=== PATIENT | female | born 1965 | race Caucasian/White ===

== ENCOUNTER → 2016-08-09 | Outpatient (CLI) | payer OTHER ==
--- NOTE | 2016-08-09 21:22 | MA ---
Digital Screening Mammogram Bilateral 08/09/2016 8:31 Indication: Screening Comparison: June 2015 and April 2014. Technique: Standard digital cephalocaudal and mediolateral oblique projections are obtained. This e xamination is processed by the [employer] computer-aided detection system. Findings: Standard views of both breasts demonstrate moderately dense fibroglandular tissue which can decrease the sensitivity to mammography, breast C (50-75%). Stable parenchymal pattern. A few benign -appearing calcifications are seen bilaterally. No suspicious interval change is seen in either breas t. Impression: Benign. BI-RADS 2. Recommendation: Screening mammogram in one year. [facility] will send a result letter to the patient. Negative mammography should not preclude additional workup of a clinically suspicious finding. The patient's information is entered into a reminder system with a target due date for her next mammo gram.
== END ==
LOC: FIMAGING 08:29
DX: Z12.31 Encounter for screening mammogram for malignant neoplasm of breast (principal)
CPT/HCPCS: G0202

== ENCOUNTER → 2017-09-15 | Outpatient (CLI) | payer OTHER ==
[~2017-09-15] MED LIST: IOPAMIDOL (ISOVUE 370) 100 ML BTL IV ONE
== END ==
LOC: FIMAGING 15:33
PROVIDERS: ATTEND Registered Nurse
DX: R05 Cough (principal); J45.990 Exercise induced bronchospasm
CPT/HCPCS: Q9967

== ENCOUNTER → 2017-10-01 | Outpatient (CLI) | payer OTHER | LOC: BIMAGING 10:36 | PROVIDERS: ATTEND Family Medicine | DX: Z12.31 Encounter for screening mammogram for malignant neoplasm of breast (principal) ==

== ENCOUNTER 2017-10-03 08:28 | Emergency (ER) | payer OTHER ==
--- NOTE | 2017-10-03 08:35 | EDPHY ---
H & P Time Seen by Provider: 10/03/17 08:35 HPI/ROS: CHIEF COMPLAINT: Chest pain and back pain HISTORY OF PRESENT ILLNESS: Patient had recent pneumonia, diagnosed with chest x-ray and CT angiography on September 15 of this year. She did not have pulmonary embolism. She has been feeling tired but recovering on her coughing is last. Today at 5:00 a.m. She awoke with initially pain between her shoulder blades and back, and then located on the right chest and then in her lower sternum. It is both sharp and achy and a little bit worse with taking deep breaths. Not positional or exertional. Not associated with diaphoresis or vomiting or weakness or numbness in extremities or vertigo or any other neurologic complaints. REVIEW OF SYSTEMS: Eye: no change in vision ENT: no sore throat Cardiac: No palpitations or syncope Pulmonary: No hemoptysis Abdomen: no vomiting, diarrhea, abdominal pain Musculoskeletal: HPI no leg swelling Skin: no rash Neuro: no headache Constitutional: no fever : no urinary symptoms A comprehensive 10 point review of systems is otherwise negative aside from elements mentioned in the history of present illness. PAST MEDICAL HISTORY: Hypothyroid, oral surgery, pneumonia. Family history: Negative For coronary disease at her age, negative for venous thromboembolism. Negative for aortic dissection. Social history: Nonsmoker, no recent travel or immobilization. General Appearance: Alert and conversant, cooperative. Eyes: No scleral icterus. ENT, Mouth: Normal mucous membranes. Respiratory: Normal respiratory effort, breath sounds equal, lungs are clear to auscultation. Not splinting. Cardiovascular: Regular rate and rhythm. No murmur. Gastrointestinal: Abdomen is soft and non tender. Neurological: Alert, face symmetric, ambulatory, normal speech. Skin: Warm and dry, no rashes. No zoster. Musculoskeletal: No peripheral edema. No calf swelling or tenderness. Psychiatric: Not agitated. Emergency Department course/MDM: Much more likely to be pleurisy then venous thromboembolism or ACS or pneumonia or pneumothorax. Oral ibuprofen, EKG is normal, troponin ordered and chest x-ray. Results discussed with the patient and imaging studies reviewed on the computer system. Low HEART score for ACS. Smoking Status: Never smoked Constitutional: Initial Vital Signs Temperature (C) 36.8 C 10/03/17 08:31 Heart Rate 59 L 10/03/17 08:31 Respiratory Rate 16 10/03/17 08:31 Blood Pressure 127/80 H 10/03/17 08:31 O2 Sat (%) 99 10/03/17 08:31 O2 Delivery Mode Room Air Allergies/Adverse Reactions: Sulfa (Sulfonamide Antibiotics) Allergy (Verified 02/28/14 19:06) lorazepam [From Ativan] Adverse Reaction (Verified 02/28/14 19:06) Home Medications: Medication Instructions Recorded Levothyroxine Unk Dose 02/28/14 Albuterol 10/03/17 Flovent Hfa 10/03/17 Medical Decision Making - Diagnostics EKG Interpretation: 12-lead EKG interpreted by me; official reading is in trace master. My interpretation is sinus rhythm rate 61 no ischemic changes. Imaging Results: Imaging Impressions Chest X-Ray 10/03/17 09:05 Impression: Stable and normal. No evidence for progressive pneumonia. Imaging: I viewed and interpreted images myself Differential Diagnosis: Differential diagnosis considered for chest pain including but not limited to myocardial ischemia, aortic dissection, pericarditis, pulmonary embolus, chest wall pain, pleural inflammation and pulmonary infectious causes. - Data Points Laboratory Results: Laboratory Results 10/03/17 08:51 10/03/17 08:51 10/03/17 10/03/17 08:51 08:51 WBC 8.16 10^3/uL 10^3/uL (3.80-9.50) RBC 4.81 10^6/uL 10^6/uL (4.18-5.33) Hgb 14.6 g/dL g/dL (12.6-16.3) Hct 43.6 % % (38.0-47.0) MCV 90.6 fL fL (81.5-99.8) MCH 30.4 pg pg (27.9-34.1) MCHC 33.5 g/dL g/dL (32.4-36.7) RDW 13.8 % % (11.5-15.2) Plt Count 353 10^3/uL 10^3/uL (150-400) MPV 10.0 fL fL (8.7-11.7) Neut % (Auto) 66.1 % % (39.3-74.2) Lymph % (Auto) 24.3 % % (15.0-45.0) [place] % (Auto) 7.8 % % (4.5-13.0) Eos % (Auto) 0.7 % % (0.6-7.6) Baso % (Auto) 0.7 % % (0.3-1.7) Nucleat RBC Rel Count 0.0 % % (0.0-0.2) Absolute Neuts (auto) 5.39 10^3/uL 10^3/uL (1.70-6.50) Absolute Lymphs (auto) 1.98 10^3/uL 10^3/uL (1.00-3.00) Absolute Monos (auto) 0.64 10^3/uL 10^3/uL (0.30-0.80) Absolute Eos (auto) 0.06 10^3/uL 10^3/uL (0.03-0.40) Absolute Basos (auto) 0.06 10^3/uL 10^3/uL (0.02-0.10) Absolute Nucleated RBC 0.00 10^3/uL 10^3/uL (0-0.01) Immature Gran % 0.4 % % (0.0-1.1) Immature Gran # 0.03 10^3/uL 10^3/uL (0.00-0.10) Sodium 143 mEq/L mEq/L (135-145) Potassium 4.3 mEq/L mEq/L (3.5-5.2) Chloride 106 mEq/L mEq/L (97-110) Carbon Dioxide 21 mEq/l L mEq/l (22-31) Anion Gap 16 mEq/L mEq/L (8-16) BUN 16 mg/dL mg/dL (7-23) Creatinine 0.8 mg/dL mg/dL (0.6-1.0) Estimated GFR > 60 Glucose 85 mg/dL mg/dL (70-100) Calcium 9.6 mg/dL mg/dL (8.5-10.4) Troponin I < 0.012 ng/mL ng/mL (0.000-0.034) Departure - Departure Disposition: Home, Routine, Self-Care Clinical Impression: Chest pain Qualifiers: Chest pain type: unspecified Qualified Code(s): R07.9 - Chest pain, unspecified Condition: Good Instructions: Chest Pain (ED), Pleurisy (ED) Referrals: Ekta Milligan MD [Primary Care Provider] - As per Instructions
--- NOTE | 2017-10-03 08:44 | CPEKG ---
Heart Rate: 61 RR Interval: 984 P-R Interval: 148 QRSD Interval: 72 QT Interval: 412 QTC Interval: 415 P [place]: 37 QRS [place]: -10 T Wave [place]: 24 EKG Severity - NORMAL ECG - EKG Impression: SINUS RHYTHM Electronically Signed By: Albino Alcantar 03-Oct-2017 08:48:03
[2017-10-03 09:39] LABS: PLATELET COUNT 353 10^3/uL (150-400)
[2017-10-03 10:04] VITALS: BP 114/56; PULSE 57; RESP 18; TEMP 98.6; O2SAT 98
== END 2017-10-03 10:05 | disposition home or self-care (01) ==
DX: R07.9 Chest pain, unspecified (principal)

== ENCOUNTER → 2018-05-11 | Outpatient (CLI) | payer OTHER | LOC: FIMAGING 09:27 | PROVIDERS: ATTEND Family Medicine | DX: J06.9 Acute upper respiratory infection, unspecified (principal) ==